=== PATIENT | female | born 1965 | race Caucasian/White ===

== ENCOUNTER 2018-04-08 08:57 | Inpatient (IN) | payer MEDICAID, OTHER ==
[~2018-04-08] VITALS: Ht 154.9 cm; Wt 87.0 kg
[2018-04-08] MEDS ORDERED: SUVO20TA PO (09:16)
[2018-04-08] MEDS ORDERED: SERT100T12 PO (09:16)
[2018-04-08] MEDS ORDERED: ARIP10TA8 PO (09:16)
[2018-04-08] MEDS ORDERED: QUET25TA PO (09:16)
[2018-04-08] MEDS ORDERED: TRAZ150 PO (09:16)
[2018-04-08 09:29] LABS: BASOPHILS % (AUTO) 0.5 % (0.0-2.0); EOSINOPHILS % (AUTO) 5.3 % (1.0-6.0); HEMATOCRIT 39.9 % (36-46); HEMOGLOBIN 13.6 g/dL (12.0-16.0); LYMPHOCYTES # (AUTO) 1.9 K/uL (1.0-4.8); LYMPHOCYTES % (AUTO) 36.1 % (22.0-44.0); MEAN CORPUSCULAR HEMOGLOBIN 31.9 pg (26.0-34.0); MEAN CORPUSCULAR VOLUME 94 fL (80-100); MONOCYTES # (AUTO) 0.3 K/uL (0.1-1.0); MONOCYTES % (AUTO) 5.6 % (2.0-9.0); NEUTROPHILS # (AUTO) 2.7 K/uL (1.8-7.7); NEUTROPHILS % (AUTO) 52.5 % (40.0-70.0); PLATELET COUNT (AUTO) 255 K/uL (150-450); RED BLOOD CELL COUNT(AUTO) 4.25 MIL/uL (4.00-5.20); RED CELL DISTRIBUTION WIDTH 14.3 % (11.5-14.5)
[2018-04-08 09:37] LABS: ANION GAP 11 mmol/L (8-16); CALCIUM, TOTAL 9.1 mg/dL (8.8-10.5); CARBON DIOXIDE 24 mmol/L (22-29); CHLORIDE 105 mmol/L (98-107); CREATININE 1.16 mg/dL (0.60-1.30); GLOMERULAR FILTR. RATE CALC 49 mL/min (>60); GLUCOSE,RANDOM 94 mg/dL (70-110); POTASSIUM 4.2 mmol/L (3.5-5.1); SODIUM SERUM 140 mmol/L (136-145); UREA NITROGEN, BLOOD 16 mg/dL (7-18)
[2018-04-08 09:43] LABS: ALANINE AMINOTRANSFERASE 24 U/L (12-78); ALBUMIN 3.9 g/dL (3.4-5.0); ALKALINE PHOSPHATASE 130 U/L (46-116); ASPARTATE AMINOTRANSFERASE 16 U/L (15-37); BILIRUBIN,TOTAL 0.3 mg/dL (0.1-1.0); TOTAL PROTEIN, SERUM 8.1 g/dL (6.4-8.2)
[2018-04-08] MEDS ORDERED: ACETAMINOPHEN 500 MG TABLET PO ONE (10:00)
[2018-04-08] MEDS ORDERED: LORazepam 2 MG TABLET PO ONE (10:00)
[2018-04-08] MEDS ORDERED: HALOPERIDOL 5 MG TABLET PO ONE (10:00)
[2018-04-08 12:23] LABS: CHOL/HDL RATIO 3.6 (3.9-5.7); CHOLESTEROL 234 mg/dL (131-200); HDL CHOLESTEROL 65 mg/dL (40-60); LDL CHOL (CALC.) 151 mg/dL (0-130); TRIGLYCERIDES 89 mg/dL (15-150)
[2018-04-08 12:58] VITALS: BP 154/95
[2018-04-08 13:13] VITALS: BP 154/95
[2018-04-08] MEDS ORDERED: ALBUTEROL SULFATE HFA 90 MCG/PUFF 8 GM INHALER IH PRN (14:00)
[2018-04-08] MEDS ORDERED: ACETAMINOPHEN 325 MG TABLET PO PRN (14:00)
[2018-04-08] MEDS ORDERED: MAGNESIUM HYDROXIDE SUSPENSION 30 ML UDCUP PO PRN ×2 (14:00)
[2018-04-08] MEDS ORDERED: NICOTINE 14 MG/24 HOUR PATCH TD PRN (14:00)
[2018-04-08] MEDS ORDERED: LOPERAMIDE HCL 2 MG CAPSULE PO PRN ×2 (14:00)
[2018-04-08] MEDS ORDERED: ONDANSETRON HCL 4 MG TABLET PO PRN ×2 (14:00)
[2018-04-08] MEDS ORDERED: PETROLATUM,WHITE 71 GM JELLY TP PRN ×2 (14:00)
[2018-04-08] MEDS ORDERED: CloNIDine HCL 0.1 MG TABLET PO PRN ×2 (14:00)
[2018-04-08] MEDS ORDERED: DOCUSATE SODIUM 100 MG CAPSULE PO PRN (14:00)
[2018-04-08] MEDS ORDERED: MAG HYDROX/AL HYDROX/SIMETH ES 30 ML SUSPENSION UDCUP PO PRN ×2 (14:00)
[2018-04-08] MEDS ORDERED: IBUPROFEN 400 MG TABLET PO PRN (14:00)
[2018-04-08] MEDS ORDERED: GuaiFENesin/D-METHORPHAN [SUGAR-FREE] 200-20MG/10 ML SYRUP UDCUP PO PRN (14:00)
[2018-04-08] MEDS: SERTRALINE HCL 100 MG TABLET PO SCH (15:14)
[2018-04-08] MEDS: ARIPiprazole 10 MG TABLET PO SCH (15:14)
[2018-04-08 18:02] VITALS: BP 136/84
[2018-04-09 06:59] LABS: HEMOGLOBIN A1C 5.2 % (4.5-6.2)
[2018-04-09 07:11] LABS: THYROID STIMULATING HORMONE 1.26 uIU/mL (0.36-3.74)
[2018-04-09 08:00] VITALS: BP 127/82
[2018-04-09] MEDS: ARIPiprazole 10 MG TABLET PO SCH (08:52)
[2018-04-09] MEDS: SERTRALINE HCL 100 MG TABLET PO SCH (08:52)
[2018-04-09] MEDS: IBUPROFEN 400 MG TABLET PO PRN (16:22)
[2018-04-09] MEDS: LORazepam 2 MG TABLET PO PRN (16:22)
[2018-04-09 18:01] VITALS: BP 159/85
[2018-04-10 08:15] VITALS: BP 97/52
[2018-04-10] MEDS: ARIPiprazole 10 MG TABLET PO SCH (09:55)
[2018-04-10] MEDS: IBUPROFEN 400 MG TABLET PO PRN (09:55)
[2018-04-10] MEDS: SERTRALINE HCL 100 MG TABLET PO SCH (09:55)
[2018-04-10] MEDS: NICOTINE 14 MG/24 HOUR PATCH TD PRN (10:38)
[2018-04-10 10:40] VITALS: BP 109/71
[2018-04-10] MEDS: LORazepam 2 MG TABLET PO PRN (10:42)
[2018-04-10 22:22] VITALS: BP 131/72
[2018-04-10] MEDS: ZOLPIDEM TARTRATE 10 MG TABLET PO PRN (23:34)
[2018-04-11] MEDS: ARIPiprazole 10 MG TABLET PO SCH (08:56)
[2018-04-11] MEDS: LORazepam 2 MG TABLET PO PRN ×2 (08:56→16:25)
[2018-04-11] MEDS: SERTRALINE HCL 100 MG TABLET PO SCH (08:56)
[2018-04-11 09:33] VITALS: BP 138/79
[2018-04-11] MEDS: NICOTINE 14 MG/24 HOUR PATCH TD PRN (10:49)
[2018-04-11] MEDS: IBUPROFEN 400 MG TABLET PO PRN (16:25)
[2018-04-11 16:54] VITALS: BP 110/91
[2018-04-11] MEDS: HALOPERIDOL 5 MG TABLET PO PRN (17:12)
[2018-04-12 08:00] VITALS: BP 127/66
[2018-04-12] MEDS: LORazepam 2 MG TABLET PO PRN ×2 (08:04→16:29)
[2018-04-12] MEDS: HALOPERIDOL 5 MG TABLET PO PRN ×2 (08:04→16:29)
[2018-04-12] MEDS: ARIPiprazole 15 MG TABLET PO SCH (08:05)
[2018-04-12] MEDS: SERTRALINE HCL 100 MG TABLET PO SCH (08:05)
[2018-04-12] MEDS: IBUPROFEN 400 MG TABLET PO PRN (16:29)
[2018-04-12 16:30] VITALS: BP 122/68
[2018-04-13 08:00] VITALS: BP 136/85
[2018-04-13] MEDS: HALOPERIDOL 5 MG TABLET PO PRN (08:53)
[2018-04-13] MEDS: ARIPiprazole 15 MG TABLET PO SCH (08:53)
[2018-04-13] MEDS: SERTRALINE HCL 100 MG TABLET PO SCH (08:53)
[2018-04-13] MEDS: LORazepam 2 MG TABLET PO PRN ×2 (08:53→16:18)
[2018-04-13] MEDS: BusPIRone HCL 5 MG TABLET PO SCH ×2 (10:47→21:07)
[2018-04-13 21:38] VITALS: BP 121/74
[2018-04-14 07:16] VITALS: BP 154/92
[2018-04-14] MEDS: HALOPERIDOL 5 MG TABLET PO PRN (07:16)
[2018-04-14] MEDS: LORazepam 2 MG TABLET PO PRN ×2 (07:16→16:10)
[2018-04-14] MEDS: BusPIRone HCL 5 MG TABLET PO SCH ×2 (09:00→20:27)
[2018-04-14] MEDS: ARIPiprazole 15 MG TABLET PO SCH (09:00)
[2018-04-14] MEDS: SERTRALINE HCL 100 MG TABLET PO SCH (09:00)
[2018-04-14 09:03] VITALS: BP 167/86
[2018-04-14 16:10] VITALS: BP 118/72
[2018-04-14] MEDS: IBUPROFEN 400 MG TABLET PO PRN (16:10)
[2018-04-15] MEDS: LORazepam 2 MG TABLET PO PRN ×3 (02:50→16:16)
[2018-04-15] MEDS: ZOLPIDEM TARTRATE 10 MG TABLET PO PRN (02:50)
[2018-04-15 09:32] VITALS: BP 148/94
[2018-04-15] MEDS: BusPIRone HCL 5 MG TABLET PO SCH ×2 (09:49→21:45)
[2018-04-15] MEDS: HALOPERIDOL 5 MG TABLET PO PRN (09:49)
[2018-04-15] MEDS: NICOTINE 14 MG/24 HOUR PATCH TD PRN (09:49)
[2018-04-15] MEDS: ARIPiprazole 15 MG TABLET PO SCH (09:49)
[2018-04-15] MEDS: SERTRALINE HCL 50 MG TABLET PO SCH (09:49)
[2018-04-15] MEDS ORDERED: BUSP5TAB20 PO (15:37)
[2018-04-15] MEDS ORDERED: ARIP15TA2 PO (15:37)
[2018-04-15] MEDS ORDERED: SERT50TA12 PO (15:37)
[2018-04-15 16:42] VITALS: BP 142/89
[2018-04-16 03:00] VITALS: BP 127/96
[2018-04-16] MEDS: HALOPERIDOL 5 MG TABLET PO PRN ×2 (03:01→10:07)
[2018-04-16] MEDS: ZOLPIDEM TARTRATE 10 MG TABLET PO PRN (03:02)
[2018-04-16] MEDS: BusPIRone HCL 5 MG TABLET PO SCH (08:36)
[2018-04-16] MEDS: SERTRALINE HCL 50 MG TABLET PO SCH (08:36)
[2018-04-16] MEDS: ARIPiprazole 15 MG TABLET PO SCH (08:37)
[2018-04-16 08:54] VITALS: BP 106/66
[2018-04-16] MEDS: LORazepam 2 MG TABLET PO PRN (10:07)
[2018-04-16] MEDS: NICOTINE 14 MG/24 HOUR PATCH TD PRN (10:09)
== END 2018-04-16 13:30 | disposition home or self-care (01) | DRG 750 ==
LOC: EMS 08:58 → 3EI 11:09
DX: F25.1 Schizoaffective disorder, depressive type (principal); R45.851 Suicidal ideations; Z59.0 Homelessness; I10 Essential (primary) hypertension; E78.5 Hyperlipidemia, unspecified; F12.90 Cannabis use, unspecified, uncomplicated; F17.210 Nicotine dependence, cigarettes, uncomplicated; F41.9 Anxiety disorder, unspecified; Z91.5 Personal history of self-harm; Z90.49 Acquired absence of other specified parts of digestive tract; Z98.51 Tubal ligation status; Z98.891 History of uterine scar from previous surgery; Z71.51 Drug abuse counseling and surveillance of drug abuser; Z71.6 Tobacco abuse counseling; Z79.899 Other long term (current) drug therapy
CPT/HCPCS: 83036; 84443; 99285; G0480